=== PATIENT | male | born 2000 | race African-American/Black ===

== ENCOUNTER 2022-11-23 07:59 | Emergency (ER) | payer OTHER ==
[~2022-11-23] VITALS: Ht 177.8 cm; Wt 68.0 kg
[2022-11-23 08:03] VITALS: BP 126/82
== END 2022-11-23 08:14 | disposition home or self-care (01) ==
LOC: ER 08:09
DX: R42 Dizziness and giddiness (principal); Z00.00 Encounter for general adult medical examination without abnormal findings
CPT/HCPCS: 99283